=== PATIENT | male | born 1955 | race Caucasian/White ===

== ENCOUNTER 2016-11-26 15:30 | Outpatient (CLI) | payer OTHER ==
[2016-11-27 00:41] LABS: T3-UPTAKE 30.8 % (25.4-41.2)
== END 2016-11-26 15:45 ==
LOC: RT 15:30
PROVIDERS: ATTEND Family Medicine
DX: I49.1 Atrial premature depolarization (principal)
CPT/HCPCS: 36415; 84436; 84443; 84479

== ENCOUNTER 2016-12-03 10:24 | Outpatient (CLI) | payer OTHER | END 2016-12-03 10:25 | LOC: RT 10:24 | PROVIDERS: ATTEND Family Medicine | DX: Z53.9 Procedure and treatment not carried out, unspecified reason (principal) ==

== ENCOUNTER 2017-03-26 10:40 | Outpatient (CLI) | payer OTHER | END 2017-03-26 10:42 | LOC: CARD 10:40 | PROVIDERS: ATTEND Internal Medicine Cardiovascular Disease | DX: I49.3 Ventricular premature depolarization (principal); I10 Essential (primary) hypertension | CPT/HCPCS: 99213 ==

== ENCOUNTER 2017-03-26 12:08 | Outpatient (CLI) | payer OTHER | END 2017-03-26 12:10 | LOC: LAB 12:08 | PROVIDERS: ATTEND Internal Medicine Cardiovascular Disease | DX: I49.3 Ventricular premature depolarization (principal) | CPT/HCPCS: 36415; 80061 ==

== ENCOUNTER 2017-04-16 12:04 | Outpatient (CLI) | payer OTHER | END 2017-04-16 12:15 | LOC: CARD 12:04 | PROVIDERS: ATTEND Internal Medicine Cardiovascular Disease | DX: I49.3 Ventricular premature depolarization (principal); I10 Essential (primary) hypertension | CPT/HCPCS: 99213 ==